=== PATIENT | male | born 1985 | race Hispanic/Latino ===

== ENCOUNTER 2018-01-28 10:56 | Emergency (ER) | payer SELFPAY ==
[~2018-01-28] VITALS: Ht 170.2 cm; Wt 88.0 kg
[2018-01-28] MEDS ORDERED: TETANUS/DIPHTHERIA TOX ADULT 0.5 ML SYR IM ONE (12:00)
[2018-01-28] MEDS ORDERED: DIPHTH/TETANUS/ACEL. PERTUSSIS 0.5 ML SYR IM ONE (12:00)
--- NOTE | 2018-01-28 12:16 | Diagnostic Imaging Report ---
Exam: Right fifth digit History: Laceration Comparison: None. Findings: No gross soft tissue defect or radiopaque soft tissue foreign body. No acute, displaced fracture. Joint spaces are well-maintained. Impression: No acute osseous abnormality. No radiopaque soft tissue foreign body. Signed by: Dr. Niraj Baptiste M.D. on 01/28/2018 12:12 PM
[2018-01-28 13:33] VITALS: BP 143/94
--- NOTE | 2018-02-07 15:58 | Progress Note ---
DATE: NO DICTATION (00:03) Job#: [id number] KRISTIE
== END 2018-01-28 13:35 | disposition home or self-care (01) ==
LOC: FSED 10:56
DX: S61.216A Laceration without foreign body of right little finger without damage to nail, initial encounter (principal); W45.8XXA Other foreign body or object entering through skin, initial encounter; Y99.0 Civilian activity done for income or pay
CPT/HCPCS: 90714; 99284